=== PATIENT | female | born 1980 | race Hispanic/Latino ===

== ENCOUNTER 2017-12-26 10:20 | Emergency (ER) | payer OTHER | END 2017-12-26 10:46 | disposition home or self-care (01) | LOC: EDH 10:20 | DX: R19.7 Diarrhea, unspecified (principal); R11.0 Nausea; E07.9 Disorder of thyroid, unspecified; Z88.8 Allergy status to other drugs, medicaments and biological substances; Z72.0 Tobacco use | CPT/HCPCS: 99281 ==